=== PATIENT | female | born 1995 | race Caucasian/White ===

== ENCOUNTER 2018-04-25 20:13 | Emergency (ER) | payer OTHER ==
[~2018-04-25] VITALS: Ht 160 cm; Wt 50.4 kg
[~2018-04-25 20:13] MED LIST: CIPR-255 PO
[2018-04-25 20:17] VITALS: BP 106/66; TEMP 37.2; Ht 160 cm; Wt 50.4 kg
[2018-04-25] MEDS ORDERED: ANTICRE6 PO (20:47)
[2018-04-25] MEDS ORDERED: PENICILLIN HOME PACK 250MG (4)BTL PO STA (21:04)
[2018-04-25] MEDS ORDERED: NORCO 5/325MG HOME PACK PO STA (21:04)
[2018-04-25] MEDS ORDERED: PENI-82 PO (21:22)
--- NOTE | 2018-04-25 21:23 | EMERGENCY ROOM VISIT NOTE ---
ED Visit Note First contact with patient: 20:21 CHIEF COMPLAINT: Toothache with fracture HISTORY OF PRESENT ILLNESS: This 22-year-old female patient presented to the emergency department, ambulatory, with a progressive toothache for past 1 day. The patient believes it is coming from the left upper molar. The patient states the tooth fractured when eating something hard yesterday and she is now experiencing severe pain. The pain is now steady and severe and radiates to the face. The patient does have a dentist appointment set up on Wednesday. They rate their pain a 6/10 and the ibuprofen and Tylenol they have been taking has not relieved the pain. Denies facial swelling or fever. The patient denies any discharge from the mouth. REVIEW OF SYSTEMS: A 6 system review of systems was completed with positives and pertinent negatives listed in the HPI. ALLERGIES: None MEDICATIONS: Macrobid PMH: Urinary tract infection SOCIAL HISTORY: The patient lives locally with family. She denies drug, alcohol use. She admits to smoking cigarettes daily. PHYSICAL EXAM: Vitals are noted on the nurse's note and reviewed by myself. Vital signs stable. Temperature 37.2C orally. GENERAL: This is a 22-year-old white female, in no acute distress, nondiaphoretic, well-developed well- nourished. Mouth: The #15 tooth is fractured, very carious, and the gum is swollen and tender around it, without any discharge or signs of an abscess. The remainder of the pharynx and tonsils are without erythema, edema, or exudate. The airway is patent. There is no facial swelling, cervical or submandibular lymphadenopathy. The patient appears uncomfortable and in pain. The patient has overall poor dental hygiene. EARS: External auditory canals clear, tympanic membranes pearly berg without erythema or effusion bilaterally. ED COURSE: The patient was seen and evaluated as above. She is uncertain which antibiotic she is on for a urinary tract infection, but believes it to the Macrobid. She states she has 1-2 days left. She will be started at this time on Pen-Vee K due to the dental infection and given a very short course of pain medication. The patient was provided with her first dose of medication and a home pack for pain medication here in the emergency department. She was also given dental wax to help due to the fracture. All questions answered to patient 's satisfaction prior to discharge. Discharge instructions reviewed, patient was discharged home in good condition. I attest that I have personally reviewed the patient's current medication list. Patient was found to have normal blood pressure on screening and does not require follow-up. Differential diagnosis includes odontalgia, periapical abscess, acute sinusitis , osteomyelitis, gingivitis, pulpitis, dental caries, periodontitis, malignancy , and others DIAGNOSIS: Odontalgia The chart was completed utilizing [employer] Speech voice recognition software. Grammatical errors, random word insertions, pronoun errors, and incomplete sentences are an occasional consequence of this system due to software limitations, ambient noise, and hardware issues. Any formal questions or concerns about the content, text, or information contained within the body of this dictation should be directly addressed to the provider for clarification. Problem List Medical Problems: (1) Urinary tract infection Status: Resolved Surgical Problems: (1) Previous section Status: Resolved Current/Historical Medications Scheduled Penicillin V Potassium (Veetids), 500 MG PO QID [Antibiotic], 1 TAB PO BID Allergies Uncoded Allergies: ORANGES (Allergy, Intermediate, "MOUTH SWELLING", 12/28/15) Vital Signs Date Time Temp Pulse Resp B/P (MAP) Pulse Ox O2 Delivery O2 Flow Rate FiO2 04/25/18 21:36 78 18 99 04/25/18 20:17 37.2 91 18 106/66 97 Room Air Departure Information Impression Primary Impression: Odontalgia Dispostion Home / Self-Care Condition GOOD Prescriptions Penicillin V Potassium (Veetids) 500 Mg Tab 500 MG PO QID for 10 Days, #40 TAB Prov: Roxana Mason, EMILIANO 04/25/18 Referrals Juancarlos Cole M.D. (PCP) Patient Instructions ED [facility] Additional Instructions You have been treated in the Emergency Department for Dental Pain. You have been prescribed [place] to be used for pain control. This is a narcotic medication. You cannot drive or consume alcohol while on this medicine. This medicine should only be used for pain that cannot be controlled with over-the- counter pain medicines. You were prescribed Pen-V K to be taken 4 times daily. This is an antibiotic. All antibiotics have the potential to cause diarrhea. Stop this medication and contact a medical provider if you were to develop any significant adverse side effects including: wheezing, shortness of breath, passing out, vomiting, or a diffuse rash. Always take antibiotics as directed and COMPLETE the ENTIRE course regardless of the improvement of your symptoms. For pain control, you can use the following [id number] medicines (if >12 yo): Ibuprofen(Motrin, Advil) may be used for fever or pain. Use 600mg every six hours as needed. Take with food. Avoid using more than 2400mg in a 24 hour period. Do not use 2400mg per day for more than three consecutive days without physician direction. Prolonged inappropriate use can lead to stomach upset or ulcers. (AND/OR) Acetaminophen(Tylenol) may be used for fever or pain. Use 1000mg every six hours as needed. Avoid using more than 3000mg in a 24 hour period. You may use Benzocaine to help with pain topically. Refrain from smoking cigarettes or using chewing tobacco until you have been evaluated by your dentist. Keeping beverages lukewarm and consuming soft foods can decrease your pain. Warm compresses over the affected area may offer some relief. You MUST seek evaluation of your dental pain by a dentist following your visit to the Emergency Department. The Emergency Department is not capable of treating dental issues long-term. You should call your dentist as soon as possible to make an appointment for evaluation of your dental pain. Return to the emergency department if you develop the following symptoms despite treatment course outlined above: fever, intractable pain, increased redness, swelling, or purulent discharge.
[2018-04-25 21:36] VITALS: PULSE 78; O2SAT 99
== END 2018-04-25 21:38 | disposition home or self-care (01) ==
LOC: C.EDB 20:14 → C.EDD 21:38
DX: K08.89 Other specified disorders of teeth and supporting structures (principal); F17.210 Nicotine dependence, cigarettes, uncomplicated; Z91.018 Allergy to other foods